=== PATIENT | male | born 1975 | race American Indian/Alaskan Native ===

== ENCOUNTER 2018-07-18 09:55 | Emergency (ER) | payer OTHER ==
[2018-07-18 10:10] VITALS: BP 128/77
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
--- NOTE | 2018-07-18 12:37 | XRay Report ---
FINAL REPORT EXAM: XR SPINE CERVICAL 2-3V HISTORY: neck pain TECHNIQUE: Three views cervical spine. PRIORS: None currently available. FINDINGS: C1-T1 visualized. Nonspecific straightening of the normal lordotic alignment. Mild disc space narrowing C4-C7. Minimal grade 1 anterior subluxation at C6-C7. No fracture. Prevertebral soft tissues are unremarkable. Lateral masses of C1 are aligned with C2. Mild levocurvature or scoliosis of the cervicothoracic spine. No suspicious osseous lesions. No vertebral anomalies. IMPRESSION: Mild levocurvature or scoliosis. Mild discogenic disease at C4-C7.
--- NOTE | 2018-07-18 12:39 | XRay Report ---
FINAL REPORT EXAM: XR SPINE LUMBOSACRAL 2-3V HISTORY: low back pain TECHNIQUE: Three views lumbar spine. PRIORS: None currently available. FINDINGS: Transitional vertebra is labeled as L5. Bilateral L5 partial sacralization with pseudoarthrosis. Lordotic alignment. Vertebral body heights are uniform. Mild disc space narrowing at L5-S1. Otherwise disc spaces are intact. No fracture. No subluxation. No scoliosis. No suspicious osseous lesions. Aortic calcifications. SI joints are unremarkable. IMPRESSION: Transitional vertebra labeled as L5. Bilateral L5 partial sacralization with pseudoarthrosis. This can be symptomatic in some patients. Discogenic disease at L5-S1.
== END 2018-07-18 13:18 | disposition home or self-care (01) ==
LOC: ED 09:55
DX: S16.1XXA Strain of muscle, fascia and tendon at neck level, initial encounter (principal); S39.012A Strain of muscle, fascia and tendon of lower back, initial encounter; E11.9 Type 2 diabetes mellitus without complications; V89.2XXA Person injured in unspecified motor-vehicle accident, traffic, initial encounter; Y93.89 Activity, other specified; Y92.89 Other specified places as the place of occurrence of the external cause; Y99.8 Other external cause status
CPT/HCPCS: 72040; 72100; 99283